=== PATIENT | female | born 1980 | race Caucasian/White ===

== ENCOUNTER 2016-10-26 21:05 | Emergency (ER) | payer SELFPAY ==
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
[2016-10-26 21:30] LABS: BASOPHIL # 0.1 K/uL (0.0-0.2); BASOPHIL % 0.7 %; EOSINOPHIL # 0.2 K/uL (0.0-0.5); EOSINOPHIL % 1.3 %; HEMATOCRIT 41.3 % (33.0-46.0); HEMOGLOBIN 14.6 g/dL (11.0-15.0); IMMATURE GRANULOCYTE # 0.1 K/uL (0.0-0.3); IMMATURE GRANULOCYTE % 0.4 %; LYMPHOCYTE # 2.4 K/uL (0.8-4.0); LYMPHOCYTE % 18.5 %; MCH 31.5 pg (27.0-34.0); MCHC 35.4 gm/dL (32.0-36.5); MCV 89.2 fl (83.0-98.0); MONOCYTE # 0.7 K/uL (0.0-1.0); MONOCYTE % 5.3 %; MPV 9.9 fl (9.4-12.4); NEUTROPHIL # (ANC) 9.4 K/uL (1.8-7.8); NEUTROPHIL % 73.8 %; NRBC % 0 /100WBC (0-0.00); PLATELET COUNT 220 K/uL (150-450); RBC 4.63 M/uL (3.50-5.50); RDW-CV 12.2 % (11.9-14.6); WBC 12.7 K/uL (4.0-11.0)
[2016-10-26 21:39] LABS: BILIRUBIN URINE NEGATIVE (NEGATIVE); BLOOD URINE NEGATIVE /UL (NEGATIVE); COLOR URINE YELLOW (YELLOW); GLUCOSE URINE NEGATIVE (NEGATIVE); KETONE URINE 15 mg/dL (NEGATIVE); LEUKOCYTES URINE 25 /UL (NEGATIVE); NITRITE URINE NEGATIVE (NEGATIVE); PROTEIN URINE 30 mg/dL (NEGATIVE); TURBIDITY URINE 1+ (CLEAR); UROBILINOGEN URINE 4 mg/dL (NORMAL)
[2016-10-26 21:48] LABS: ALBUMIN 4.2 gm/dL (3.5-5.0); ALK PHOS 59 IU/L (33-138); ALT 25 IU/L (12-78); ANION GAP 15.8 (10.0-19.0); AST 25 IU/L (10-40); BLOOD UREA NITROGEN 10 mg/dL (6-24); CALCIUM 8.1 mg/dL (8.5-10.5); CHLORIDE 106 mMol/L (96-110); CO2 19 mMol/L (22-32); CREATININE 0.7 mg/dL (0.5-1.1); ESTIMATED GFR (MDRD EQUATION) > 60; POTASSIUM 3.8 mMol/L (3.7-5.1); SODIUM 137 mMol/L (135-145); TOTAL BILIRUBIN 0.5 mg/dL (0.0-1.5); TOTAL PROTEIN 7.3 g/dL (6.0-8.4)
[2016-10-26 21:49] LABS: RBC URINE NEGATIVE #/HPF (NEGATIVE)
[2016-10-26 21:50] LABS: BACTERIA URINE RARE (NEGATIVE); MUCUS URINE 2+ (NEGATIVE)
[2016-10-26 21:59] LABS: BARBITURATE NEGATIVE (NEGATIVE); COCAINE NEGATIVE (NEGATIVE); OPIATES NEGATIVE (NEGATIVE)
[2016-10-26 22:00] LABS: AMPHETAMINE NEGATIVE (NEGATIVE)
== END 2016-10-26 22:04 | disposition disaster alternative care site (69) ==
LOC: GMED 21:05
PROVIDERS: Nurse Practitioner Family
DX: Z02.89 Encounter for other administrative examinations (principal); R45.851 Suicidal ideations; J44.9 Chronic obstructive pulmonary disease, unspecified; F17.210 Nicotine dependence, cigarettes, uncomplicated; Z88.2 Allergy status to sulfonamides
CPT/HCPCS: G0480